=== PATIENT | male | born 1940 | race Caucasian/White ===

== ENCOUNTER → 2016-11-03 20:04 | Outpatient (CLI) | payer MEDICARE, OTHER ==
[2016-04-01 10:24] VITALS: BMI 35.8
[~2016-11-03 20:04] MED LIST: ACETAMINOPHEN325 MG PO; ACETAMINOPHEN500 M1 PO; AMBIEN10 MG PO; AMBIEN5 MG PO; ARICEPT10 MG PO; ARICEPT5 MG PO; ASCORBIC ACID500 MG PO; ASPIRIN325 MG PO; ASPIRIN81 MG PO; ATIVAN0.5 MG PO; ATIVAN1 MG PO; ATIVAN2 MG/ML IM; AUGMENTIN 875-11 TAB PO; BAYER CHEWABLE81 MG PO; BOUDREAUXS113 GM TP; BUDEPRION XL300 MG PO; BUMEX 1 MG TAB1 MG PO; BUMEX 1 MG/1 MG/4 ML IV; BUMEX2 MG PO; BUSPAR10 MG PO; BUSPAR5 MG PO; CELEXA40 MG PO; CLOBETASOL PROP15 GM TP; COLCRYS0.6 MG PO; CORDARONE200 MG PO; COREG 3.1253.125 MG PO; COREG12.5 MG PO; COREG6.25 MG PO; COZAAR100 MG PO; CROMOLYN SOD40 MG/ML NS; CYMBALTA30 MG PO; DEPAKOTE SPRIN125 MG PO; DUONEB 2.5-0.5 M3 ML UPD; EFFEXOR XR150 MG PO; EFFEXOR XR37.5 MG PO; EFFEXOR75 MG PO; ERYTHROCIN STE500 MG PO; FLOMAX0.4 MG PO; FLORASTOR250 MG PO; FLUTICASONE PRO16 GM NASAL; GLUCOSAMINE & C1 CAP PO; HALDOL5 MG PO; HALDOL5 MG/ML IM; HYDROCODON-ACE1 EAC7 PO; K-DUR20 MEQ PO; KENALOG IN ORABA5 GM TOPICAL; KLONOPIN0.5 MG PO; LAC-HYDRIN 5226 ML TP; LASIX40 MG PO; LEVAQUIN PREMI750 MG IV; LEVAQUIN500 MG PO; LISINOPRIL10 MG PO; LOVENOX40 MG/0.4 SQ; MAG-OX 400 MG400 MG OR; MAG-OXIDE400 MG PO; MELATONIN 3 MG1 TAB PO; MIRALAX17 GM PO; MUCINEX600 MG PO; NASONEX NASAL S17 GM NS; NEURONTIN 300300 MG PO; NORCO 10/325 TA1 TA1 PO; NORCO 7.5/325 T1 TA1 PO; OMEPRAZOLE20 M1 PO; POTASSIUM20 MEQ/11 NG; PREDNISONE10 MG PO; PREDNISONE20 MG PO; PROTONIX40 MG PO; REQUIP XL2 MG PO; REQUIP XL6 MG PO; REQUIP0.25 MG PO; REQUIP3 MG PO; SALINE FLUSH10 ML IJ; SEPTRA DS TABLE1 TAB PO; SILVASORB HYDRO45 GM TP; SYNTHROID50 MCG PO; TRAZODONE HCL150 MG PO; TRAZODONE HCL50 MG PO; TYLENOL W/CODEI1 TAB PO; ULORIC40 MG PO; WELLBUTRIN XL300 M1 PO; ZAROXOLYN2.5 MG PO; ZAROXOLYN5 MG PO; ZOLOFT100 MG PO; ZYLOPRIM300 MG PO; ZYPREXA5 MG PO; [UNRECOGNIZED DRUG - OTHER] NS
== END | disposition home or self-care (01) ==
LOC: D.SLEEP 20:00
DX: G47.33 Obstructive sleep apnea (adult) (pediatric) (principal)

== ENCOUNTER 2016-11-04 13:57 | Inpatient (IN) | payer MEDICARE, OTHER ==
[~2016-11-04] VITALS: Ht 177.8 cm; Wt 103.0 kg
[~2016-11-04 13:57] MED LIST changes: -ACETAMINOPHEN325 MG PO; -ARICEPT10 MG PO; -CLOBETASOL PROP15 GM TP; -COLCRYS0.6 MG PO; -COREG 3.1253.125 MG PO; -CYMBALTA30 MG PO; -DEPAKOTE SPRIN125 MG PO; -FLUTICASONE PRO16 GM NASAL; -HYDROCODON-ACE1 EAC7 PO; -KENALOG IN ORABA5 GM TOPICAL; -LISINOPRIL10 MG PO; -MIRALAX17 GM PO; -MUCINEX600 MG PO; -NEURONTIN 300300 MG PO; -OMEPRAZOLE20 M1 PO; -REQUIP0.25 MG PO; -TRAZODONE HCL150 MG PO; -TRAZODONE HCL50 MG PO; -ZOLOFT100 MG PO; -ZYPREXA5 MG PO
[2016-11-04] MEDS ORDERED: ACETAMINOPHEN325 MG PO (14:06)
[2016-11-04] MEDS ORDERED: ARICEPT10 MG PO (14:07)
[2016-11-04] MEDS ORDERED: ZOLOFT100 MG PO (14:09)
[2016-11-04] MEDS ORDERED: CYMBALTA30 MG PO (14:10)
[2016-11-04] MEDS ORDERED: TRAZODONE HCL50 MG PO (14:11)
[2016-11-04] MEDS ORDERED: OMEPRAZOLE20 M1 PO (14:12)
[2016-11-04] MEDS ORDERED: K-DUR20 MEQ PO (14:13)
[2016-11-04] MEDS ORDERED: LISINOPRIL10 MG PO (14:17)
[2016-11-04] MEDS ORDERED: LASIX40 MG PO (14:18)
[2016-11-04] MEDS ORDERED: FLUTICASONE PRO16 GM NASAL (14:21)
[2016-11-04] MEDS ORDERED: COREG 3.1253.125 MG PO (14:25)
[2016-11-04] MEDS ORDERED: COLCRYS0.6 MG PO (14:26)
[2016-11-04] MEDS ORDERED: NEURONTIN 300300 MG PO (14:27)
[2016-11-04] MEDS ORDERED: HYDROCODON-ACE1 EAC7 PO (14:28)
[2016-11-04] MEDS ORDERED: MIRALAX17 GM PO (14:30)
[2016-11-04] MEDS ORDERED: CLOBETASOL PROP15 GM TP (14:34)
[2016-11-04] MEDS ORDERED: KENALOG IN ORABA5 GM TOPICAL (14:38)
[2016-11-04 15:12] VITALS: BP 148/75; BMI 32.4
--- NOTE | 2016-11-04 15:15 | NUR ---
Patient arrived via EMS with two EMT's, patient able to stand and ambulate with a walker. Patient has only been at [facility] for three months. Apparently he is upset about being there and he has displayed aggressive and threatening behaviors. Patient is currently calm and compliant, he is able to answer questions appropriately, he is quite flitatious with females. Patient does have a pacemaker on his left side. Has a scar to chest where he had a quad bypass, scar on left leg, scars from psoriasis. C/O chronic pain. Patient says he just does not like [facility]. Provided patient a w/c and took him to the day room.
[2016-11-04 16:06] LABS: BASOPHILS 0.7 % (0.0-2.0); EOSINOPHILS 4.3 % (0-7); HEMATOCRIT 35.7 % (42.0-54.0); HEMOGLOBIN 11.1 g/dL (13.5-17.5); IMMATURE GRANULOCYTES 0.2 % (0-5); LYMPHOCYTES 22.3 % (15-50); MCH 27.6 pg (26.0-34.0); MCHC 31.1 g/dL (31.0-37.0); MCV 88.8 fL (80.0-100.0); MEAN PLATELET VOLUME 9.9 fL (7.4-10.4); MONOCYTES 11.2 % (2-11); NEUTROPHILS 61.3 % (40-80); RBC 4.02 10x6/uL (4.20-6.10); WBC 6.1 10x3/uL (4.8-10.8)
[2016-11-04 16:12] LABS: PLATELET COUNT 235 10x3/uL (130-400)
[2016-11-04 16:21] LABS: HEMOGLOBIN A1C 5.5 % (4.8-6.0)
[2016-11-04 16:32] LABS: ALBUMIN 3.3 g/dL (3.4-5.0); ANION GAP 11.4 mmol/L (8-16); BILIRUBIN - TOTAL 0.24 mg/dL (0.2-1.3); CALCIUM 9.3 mg/dL (8.5-10.1); CARBON DIOXIDE 29.9 mmol/L (21.0-32.0); CHOL - HDL RATIO 2.9 ratio (2.3-4.9); CREATININE - SERUM 1.2 mg/dL (0.6-1.3); LDL-HDL RATIO 1.5 ratio (1.5-3.5); POTASSIUM - SERUM 4.3 mmol/L (3.5-5.1); PROTEIN - SERUM 6.1 g/dL (6.4-8.2); THYROID STIMULATING HORMONE 0.49 uIU/mL (0.36-3.74)
[2016-11-04 19:30] VITALS: BP 134/62
--- NOTE | 2016-11-05 00:19 | NUR ---
B) Recieved patient in the day room sitting in a wheelchair, alert and complaining about his care, the arrangement of the bathrooms, heritage, the doctors, the other patients, and many other subjects, if corrected or redirected he yells that he is hard of hearing, demands that all medications be explained and wants to pick and choose what medications that he wants to take, demanding and attention seeking, I) Administered perscribed medications, redirected as needed, PRN ativan 1 mg PO given at 2242, PRN Tylenol 650 mg given for head ache 7 of 10 at 0030, R) Refused some medications and took somme medications, P) Continue plan of care, continue to monitor.
[2016-11-05 04:13] LABS: RAPID PLASMA REAGIN Non Reactive (Non Reactive)
[2016-11-05 05:15] LABS: VITAMIN D 25 HYDROXY 50.3 ng/mL (30.0-100.0)
[2016-11-05 08:11] VITALS: BP 144/75
[2016-11-05 09:18] LABS: FOLATE (FOLIC ACID) - SERUM 19.8 ng/mL (>3.0)
--- NOTE | 2016-11-05 12:36 | NUR ---
(B)RECEIVED PATIENT SITTING IN A CHAIR AT THE NURSES STATION. ORIENTED X3 HOWEVER DESCRIBES THE FACILITY BEING A LARGE LOCK DOWN UNIT FOR MENTAL ADULTS. RELATES REASON FOR HOSPITALIZATION "I GUESS BECAUSE I'M A [place] AND I DON'T SPEAK THEIR LANGUAGE. I USE MORE 5 SYLLABLE WORDS AND THEY DON'T UNDERSTAND. THEY ARE SO STUPID." VERY NEGATIVE REGARDING HIS LIVING FACILITY RELATING THEIR AIR IS TOXIC AND NOT WORTH BREATHING. VERY LOUD AND DOMINANT IN CONVERSATIONS. WHEN INFORMED FOR REPORTED REASON FOR HOSPITALIZATION PATIENT RELATES "I MAY HAVE BUT THEY DESERVED IT." (I)ADMINISTER MEDS AND MONITOR COMPLIANCE. REDIRECT WHEN BEING NEGATIVE AND DISRUPTING ENVIRONMENT. (R)FMED COMPLIANT. POOR REDIRECTION. CONTINUES WITH PROJECTED BEHAVIOR AND WILL BE ARGUMENTATIVE. (P)CONTINUE POC AND MAINTAIN FALL PRECAUTIONS.
--- NOTE | 2016-11-05 14:13 | NUR ---
Patient is agitated and yelling out. He is upsetting the other patients with his rants and raves. He does not like the rules. Haldol 2 mg IM given in left deltoid.
[2016-11-05 14:19] VITALS: Ht 177.8 cm; Wt 103.0 kg
[2016-11-05 16:21] LABS: APPEARANCE CLEAR (CLEAR); BILIRUBIN NEGATIVE (NEGATIVE); COLOR YELLOW (YELLOW); GLUCOSE NEGATIVE (NEGATIVE); KETONE NEGATIVE (NEGATIVE); LEUKOCYTE ESTERASE NEGATIVE (NEGATIVE); NITRITE NEGATIVE (NEGATIVE); PROTEIN NEGATIVE (NEGATIVE); UROBILINOGEN NORMAL (NORMAL)
[2016-11-05 19:30] VITALS: BP 119/57
--- NOTE | 2016-11-05 20:52 | NUR ---
B) Patient is acting out, talking gruff and rude with staff and about staff. Lizz Gaxiola RN took him to his room and she was able to talk with him and calm him slightly, she asked him if he would like an ativan to calm him down, he had been yelling out and screaming to GOD and saying "No one cares about me" Patient said he would take an ativan by mouth. I) Ativan 1 mg po given. R) Will monitor outcome. P) Continue plan of care.
--- NOTE | 2016-11-05 23:32 | NUR ---
PATIENT STILL ANXIOUS AND REQUESTING AN INJECTION TO HELP HIM. HALDOL 2 MG IM GIVEN IN RIGHT DORSOGLUTEAL MUSCLE. WILL MONITOR OUTCOME.
[2016-11-06 09:46] VITALS: BP 124/68
--- NOTE | 2016-11-06 16:01 | NUR ---
RECEIVED THIS AM SITTING IN WHEELCHAIR.COMPLIANT WITH MEDS.C/O "I WANT THE COUCH,I WANT TO LAY DOWN.HE ALWAYS HAS THE COUCH."VERY LOUD AND DETERMINED.NURSE INFORMED HIM HE CAN HAVE COUCH AFTER LUNCH.THIS SEEMED TO CALM HIM SOME.WILL CONTINUE WITH PLAN OF CARE,MONITOR FOR CHANGES AND SAFETY.
--- NOTE | 2016-11-06 18:39 | PSY ---
PATIENT NAME:MK ROMAN MEDICAL RECORD: [id number] : 40 LOCATION:[facility] ADMISSION DATE: 11/04/16 ACCOUNT: [id number] PSYCHIATRIC EVALUATION DATE OF EVALUATION: 11/05/16 IDENTIFYING DATA: This is the third [facility] admission for this 76-year-old unmarried white male. HISTORY OF PRESENT ILLNESS: This patient was previously admitted to this unit in 2013. At that time, he received a diagnosis of major depressive disorder as well as narcissistic personality disorder. At the time of the original admission, the patient had been having severe marital difficulties. He had expressed suicidality and was subsequently admitted here. Subsequent to discharge, the patient had returned to the home environment; he and his are no longer together. The patient was admitted back to the hospital in the summer of last year following a transient ischemic attack and apparent CVA. He was transferred to a treatment facility in [place] through the [facility]. Subsequent to this, he was placed in a long term in [place] and later transferred to [facility] where he is currently a resident. The patient was sent to [facility] due to threatening behavior and verbalization directed at staff and other patients. One staff member reported the patient had made statements indicative of suicidality as well. The patient himself denies suicidal intent. There is no evidence of psychosis, no ongoing substance abuse as far as can be determined. PAST MEDICAL HISTORY: The patient has a past history of respiratory failure secondary to his CVA last year. He has a history of congestive heart failure, anemia, maxillary sinusitis, ERD and CVA is noted. MEDICATION: At the time of admission included aspirin, acetaminophen with hydrocodone, Coreg, colchicine, Aricept, Cymbalta, Lasix, Flonase, Neurontin, lisinopril, Protonix, K-Dur, Zoloft, Flomax and trazodone. FAMILY HISTORY: Noncontributory. SOCIAL HISTORY: The patient is currently a long term resident. He denies substance abuse. He is a [employer] . ALLERGIES: None listed. MENTAL STATUS: On interview, the patient is seated in a wheelchair. He is overly loud and intrusive on conversations with other patients'. Mood is alternately irritable and more euthymic. Affect is expansive and brittle at times. Content of thought is focused on persecutory themes. The patient projects blame problems on other individuals and facilities. The patient denies suicidal intent and there is no evidence of psychosis. Sensorium does show deficits. He has difficulties with short-term and immediate recall. Insight is very limited. DIAGNOSTIC IMPRESSION: AXIS I: Major depressive disorder - recurrent by history, reported history of dementia. AXIS II: Narcissistic personality disorder (cluster B). AXIS III: Congestive heart failure, status post cerebrovascular accident, history of gout, inhalant allergies, recent history of respiratory failure and gastroesophageal reflux disease. AXIS IV: Moderate. AXIS V: 36. PLAN: 1. The patient is admitted for further evaluation and medication adjustment as indicated. 2. Supportive therapy. 3. We will coordinate with referring agency regarding followup care. TRANSINT:[id number] Voice Confirmation ID: [id number] DOCUMENT ID: [id number] SURAJ PONCE III, MD at 1839 CC: [id number] DICTATION DATE: 11/05/16 1157 YOUTH PASTOR: 11/05/16 1311 ADM IN [facility] [address] [id number]
[2016-11-06 20:00] VITALS: BP 182/87
--- NOTE | 2016-11-06 21:50 | NUR ---
B) Drowsy and lethargic sleeping on couch at change of shift. Questioned if his medications were really his, argumentative about purpose of each medication. No interaction with peers. Irritable but no aggression or yelling or cursing this shift thus far. Did have a shower this evening with assist. I) Administer medications as ordered, redirect and reorient PRN. R) Oriented x 4. Does know that he shouldn't threaten others. P) Continue with plan of care.
[2016-11-07 07:41] VITALS: BP 128/94
--- NOTE | 2016-11-07 13:38 | NUR ---
pt was very combative and agitated this morning. pt was yelling and cursing at staff. pt would not redirect. pt is oriented to person, place, and time. pt denies any reason for admission to "assisted". attempted to help calm patient and educate on reason for admit but he continued to yell and refused any education. pt stated that he could not walk due to being too weak, so he was placed in a wheelchair. later he attempted to stand without assist. staff again attempted to eduate pt on fall risk and he refused. security was called due to pt's combativeness. pt was given a PRN Haldol IM due to severe anxiety and inability to calm down. got pt to sit in wheelchair but he refused to elevate his legs. skin was tight and he c/o soreness but he continued to refuse to elevate his legs or to take his medication. pt again attempted to stand and staff helped to move him into a monica chair during first transfer it was noticed that the pt had a laceration to his right calf. no contact had been done with this leg so i called dr. nolasco and reported injury. she stated due to the pt's edematous legs that it happened without contact. i called delfino berman, pt's daughter and informed her of the incident. i applied a pressure dressage to leg and cleaned the area. pt did finally calm down and allowed staff to elevate feet and apply todd hoses. pt thanked staff for their care. will continue to monitor and continue with plan of care.
[2016-11-07 19:30] VITALS: BP 148/70
--- NOTE | 2016-11-07 21:13 | NUR ---
RECEIVED IN DAYROOM. MOVING ABOUT IN WHEELCHAIR. CALM AND COOPERATIVE WITH CARE AND ASSESSMENT. DEMANDING AT TIMES. NOT YELLING OUT OR CURSING. RUDE TO PEERS. REDIRECT AND REORIENT NEEDED. PM MEDS GIVEN ORDERED. LAYING IN BED WITH EYES OPEN AT THIS TIME. CONTINUE PLAN OF CARE
--- NOTE | 2016-11-07 23:43 | NUR ---
Complaining of excruciating aching burning pain in both hands. Given [place] tab po PRN as ordered. Will monitor for effectiveness.
[2016-11-08 07:38] VITALS: BP 128/72
--- NOTE | 2016-11-08 15:38 | NUR ---
B.) Alert and oriented to name and states place as " this is a senior care without bars." Patient is disgruntal and argumentive with staff, " just stupid people to have us wake up so early and then eat cold breakfast, just stupid." I.) Administer medications and monitor compliance, redirect for any disruptive beahvior and disgruntal remarks. Monitor safety and encourage group participation. R.) Compliant with medications, does not rediect easily when disruptive, " just give me a 45 and then I'll be out of everybody way" then starts to cry and demand he be lifted up from chair to W/C. Contracted for safety. P.) Continue with plan of care and redirecting for inappropriate behavior as need.
--- NOTE | 2016-11-08 15:48 | NUR ---
WOUND CARE CONSULT: PT HAS A SKIN TEAR ON RIGHT CALF. IT IS CLEAN AND DRY, STERISTRIPS IN PLACE, NON-ADHERENT GAUZE, 4X4S AND KERLIX TO SECURE. RECOMMEND KEEPING DRESSING CLEAN/DRY. LEAVE STERI STRIPS IN PLACE UNTIL THEY LOOSEN. THANKS
[2016-11-08 19:58] VITALS: BP 140/59
--- NOTE | 2016-11-08 20:09 | NUR ---
RECEIVED IN DAYROOM. SETTING IN RECLINING CHAIR. CALM AND COOPERATIVE WITH CARE AND ASSESSMENT. ENCOURAGE TO KEEP FEET ELEVATED BUT CONTINUES TO PUT HIS FEET DOWN. NO CURSING OR YELLING OUT THIS EVENING. CONTINUES TO SET QUIETLY WATCHING TV. CONTINUE PLAN OF CARE
--- NOTE | 2016-11-08 22:11 | NUR ---
patient given [place] for generlized pain 10 of 10,
--- NOTE | 2016-11-08 23:26 | NUR ---
PRN ATIVAN 1 MG GIVEN FOR ANXIETY AT 2259.
--- NOTE | 2016-11-09 10:01 | NUR ---
Nutrition Follow Up: Chart reviewed. Pt is eating 81% meal avg on a regular [place]RIA diet. Noted pt does not want any beef. Wt gain of 2# since admit. +BM 11/07/16. Meds noted including Lasix. Pt with good po intake at this time. Rec continue current diet. RD following.
[2016-11-09 10:07] VITALS: BP 171/76
--- NOTE | 2016-11-09 10:39 | PN ---
PATIENT:MK ROMAN MEDICAL RECORD: [id number] LOCATION:[facility] P[facility]ro112 ADMISSION DATE: 11/04/16 PROGRESS NOTE DATE OF SERVICE: 11/08/2016 SUBJECTIVE: The patient states "This place is a dump." OBJECTIVE: Staff report the patient has been extremely difficult to manage due to his demeaning sarcastic comments, poor cooperation, attention seeking behavior and disruptive outbursts. The patient has had several episodes of yelling when he simply was displeased with something that staff did. He has required almost constant redirection. On exam, mood is irritable. Affect is very brittle. Speech is somewhat pressured. Content of thought is predominated by narcissistic themes and expressions of persecution. Sensorium is unchanged. ASSESSMENT: No change in diagnosis. PLAN: 1. Serum valproic acid level was 29.7. We will change Depakote to 500 mg b.i.d. 2. Add Zyprexa 5 mg b.i.d. 3. Increase trazodone 150 mg h.s. TRANSINT:[id number] Voice Confirmation ID: [id number] DOCUMENT ID: [id number] SURAJ PONCE III, MD at 1039 CC: [id number] DICTATION DATE: 11/08/16 1159 CONCRETE PAVEMENT INSTALLER: 11/08/16 1421 ADM IN [id number] [place] [address]
--- NOTE | 2016-11-09 11:04 | NUR ---
PATIENT IS SITTING IN A CHAIR IN THE DAYROOM. DISRUPTIVE AND SPEAKING LOUDLY RELATING "WHY CAN'T I HAVE WARM CLOTHES LIKE EVERYBODY ELSE? I WANT TO TALK TO THE BOSS. I WANT TO TALK TO THE BOSS RIGHT NOW. PATIENT HAS BEEN NAPPING ON AND OFF THIS AM. IF NOT NAPPING PATIENT ARGUES AND DISRUPTS THE UNIT. ATIVAN PO ADMINISTERED PER ORDERS.
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
[2016-11-09 19:39] VITALS: BP 140/58
--- NOTE | 2016-11-09 20:51 | NUR ---
B) Patient continues to be demanding and yells out, he is sitting in a monica chair and yelling at staff to turn the channel to what he wants then he says "I want to go to bed, take me to bed" Patient is attention seeking and self absorbed. He knows his name and where he is located. I) Provide prescribed meds. R) Patient is compliant with meds. Did provide ativan 1 mg po now for his anxiety and yelling out. P) Continue plan of care.
--- NOTE | 2016-11-10 01:30 | NUR ---
PATIENT YELLING OUT ATTEMPING TO GET OUT OF BED. REDIRECT BUT CONTINUES TO ATTEMPT TO GET OUT OF BED WITHOUT ASSIST. [facility] AND MOVED TO [address] AT [facility]UR[facility]ES STATION FOR ONE ON ONE CARE.
--- NOTE | 2016-11-10 03:21 | NUR ---
PATIENT THROUGH WATER ON HIMSELF AND YELLED OUT SHE THROUGH WATER ON ME. REFERRING TO THE [facility] THAT HAD JUST GIVEN HIM A CUP OF WATER WHICH AT THIS TIME M[facility] WAS DOWN [address] DOING LAUNDRY. REDIRECTED BUT CONTINUES TO YELL. HALDOL 2 MG IM GIVEN.
[2016-11-10 07:40] VITALS: BP 167/65
--- NOTE | 2016-11-10 10:37 | PN ---
PATIENT:MK ROMAN MEDICAL RECORD: [id number] LOCATION:[facility]E [facility] ADMISSION DATE: 11/04/16 PROGRESS NOTE DATE OF SERVICE: 11/09/2016 SUBJECTIVE: No new complaint. OBJECTIVE: The patient continues to be very petulant and childlike in his interaction with staff. He is very attention seeking and will disrupt the activities on the unit at regular intervals. However, he is taking his medication. On exam, mood is irritable. Affect is very shallow, brittle and childlike. Speech is terse. Content of thought is negative for overt psychosis. Sensorium is unchanged. ASSESSMENT: No change in diagnosis. PLAN: 1. Maintain current medication. 2. Continue supportive therapy. TRANSINT:[id number] Voice Confirmation ID: [id number] DOCUMENT ID: [id number] SURAJ PONCE III, MD at 1037 CC: [id number] DICTATION DATE: 11/09/16 1215 FELT FINISHING SUPERVISOR: 11/09/16 1251 ADM IN [id number] [place] [address]
--- NOTE | 2016-11-10 14:21 | NUR ---
RECEIVED THIS AM IN HALLWAY IN [facility].VERY HARD OF HEARING.ORIENTED.COMPLIANT WITH MEDS.IS VERY LOUD AND DEMANDING WHEN HE DOESN'T GET HIS WAY SUCH CHANGING TV CHANNELS.REQUIRED 2 TO TRANSFER FROMRECLINER TO WHEELCHAIR,STATED HE CAN'T WALK NOW.PT WAS ORDERED AND HE AMB WITH WALKER WITH PT.WILL CONTINUE WITH PLAN OF CARE,MONITOR FOR CHANGES AND SAFETY.
--- NOTE | 2016-11-10 20:49 | NUR ---
RECEIVED IN DAYROOM. SETTING IN WHEELCHAIR TO HIMSELF. NOT SOCIALIZING BUT DOES MAKE OCCASIONAL RUDE STATEMENTS TO STAFF AND OTHERS. DEMANDING AT TIMES. NOT MAKING ANY THREATS AT THIS TIME. REDIRECT NEEDED. PM MEDS GIVEN ORDERED. RESTING IN BED AT THIS TIME. CONTINUE PLAN OF CARE
[2016-11-11 08:07] VITALS: BP 148/69
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
--- NOTE | 2016-11-11 15:09 | NUR ---
PATIENT ORIENTED TO PERSON, PLACE, TIME AND SITUATION. STATING HE IS HERE BECAUSE "I MARCH TO A DIFFERENT DRUMMER". PATIENT COOPERATIVE WITH MEDICATION, PATIENT WAS ASSISTED WITH PERSONAL HYGIENE, CALM AND COOPERATIVE. CONTINUE PLAN OF CARE.
[2016-11-11 19:30] VITALS: BP 130/108
--- NOTE | 2016-11-11 20:40 | NUR ---
In dayroom lying in recliner with blanket pulled up over his head. Making rude sarcastic comments to others interrupting conversations around him.
--- NOTE | 2016-11-11 20:47 | NUR ---
Given Ativan 1mg po PRN for anxiety.
--- NOTE | 2016-11-11 21:35 | NUR ---
Behavior somewhat calmer, in bed trying to settle to sleep. Ativan effective.
--- NOTE | 2016-11-12 00:55 | NUR ---
Given [place] 5-325mg tab po PRN for complaints of right knee pain.
--- NOTE | 2016-11-12 01:29 | NUR ---
B) Patient continues to question his medications, be impatient and demanding with frivolous requests such as having his soda refilled when he sees staff tending to a peer's needs. No signs of chest pain, facial expression calm, no body tenseness, no diaphoresis, VSS. Claims that the [place] tab given from previous shift did not help his headache, his pain is still 10/10. However when he returned to his room was found to be napping, respirations easy and regular. Frequently puts call german on, has been assisted up to BR x 2 with staff assistance. I) Administer medications as ordered, redirect and reorient PRN. R) Complaint with medications, labile mood. P) Continue to monitor per plan of care.
--- NOTE | 2016-11-12 01:40 | NUR ---
Right knee pain deemed to be relieved, sleeping at thie time.
[2016-11-12] MEDS ORDERED: DEPAKOTE SPRIN125 MG PO (03:43)
[2016-11-12] MEDS ORDERED: TRAZODONE HCL150 MG PO (03:44)
[2016-11-12] MEDS ORDERED: REQUIP0.25 MG PO (03:44)
[2016-11-12] MEDS ORDERED: ZYPREXA5 MG PO (03:44)
[2016-11-12] MEDS ORDERED: PROTONIX40 MG PO (03:45)
[2016-11-12] MEDS ORDERED: MUCINEX600 MG PO (03:45)
--- NOTE | 2016-11-12 03:47 | PN ---
PATIENT:MK ROMAN MEDICAL RECORD: [id number] LOCATION:J[facility]E [facility] ADMISSION DATE: 11/04/16 PROGRESS NOTE DATE OF SERVICE: 11/11/2016 SUBJECTIVE: No new complaint is offered. OBJECTIVE: The patient is continuing to show a subtherapeutic level of valproic acid results from yesterday morning or only 40.5. The patient has continued to show obstreperous behavior, but has not been directly combative or assaultive in several days. On exam, mood irritable. Affect is brittle and childlike. Speech is somewhat tangential. Content of thought is essentially unchanged. Sensorium is unchanged. ASSESSMENT: No change in diagnosis. PLAN: 1. Advance Depakote Sprinkle 750 mg b.i.d. 2. Repeat valproic acid blood level in the morning. 3. Anticipate discharge tomorrow. TRANSINT:[id number] Voice Confirmation ID: [id number] DOCUMENT ID: [id number] SURAJ PONCE III, MD at 0347 CC: [id number] DICTATION DATE: 11/11/16 1205 DIESEL RETROFIT INSTALLER: 11/11/16 1439 ADM IN [id number] [place] [address]
--- NOTE | 2016-11-12 05:35 | NUR ---
Given Tylenol 650mg po PRN for right calf pain 8/10 severity. Will monitor for effectiveness.
[2016-11-12 06:38] VITALS: BP 117/55
[2016-11-12 08:12] VITALS: BP 126/49
--- NOTE | 2016-11-12 08:56 | NUR ---
PATIENT PRESENTS WITH CONTINUED BILIGERENT BEHAVIORS, HAS NOT BEEN COMBATIVE, BUT DOES YELL OUT AND DEMANDS. PATIENT TO D/C TODAY. [facility] GAVE VERBAL REPORT. HARD COPY PROVIDED TO SOFTWARE APPLICATIONS SPECIALIST. PATIENT ASSISTED TO VAN BY STAFF. PATIENT WAS DISCHARGED FROM THE BUILDING.
--- NOTE | 2016-11-13 12:54 | PN ---
PATIENT:MK ROMAN MEDICAL RECORD: [id number] LOCATION:[facility]ro112 ADMISSION DATE: 11/04/16 PROGRESS NOTE DATE OF SERVICE: 11/12/2016 SUBJECTIVE: The patient's case was discussed with staff. He has no new complaint. OBJECTIVE: The patient is in good behavioral control with limited insight about his condition. He tolerates his medicines well. ASSESSMENT: No change in diagnoses. PLAN: Current medicines and therapies have been reviewed and will be maintained. Long-term prognosis is guarded. Followup will be with the patient's primary care physician. TRANSINT:[id number] Voice Confirmation ID: [id number] DOCUMENT ID: [id number] EASTON STEINER MD at 1254 CC: [id number] DICTATION DATE: 11/12/16 1223 CHEMIST STEROIDS: 11/12/16 1727 DIS IN 11/12/[id number] [place] [address]
--- NOTE | 2016-11-16 01:03 | DS ---
PATIENT:MK ROMAN :40 MEDICAL RECORD: [id number] DISCHARGE SUMMARY ADMISSION DATE: 11/04/16 DISCHARGE DATE: 11/12/16 DATE OF ADMISSION: 11/04/2016. DATE OF DISCHARGED: 11/12/2016. HISTORY OF PRESENT ILLNESS: This was the third [facility] admission for this 76-year-old unmarried white male. The patient had been admitted because of agitation and threatening behavior with staff and now the patient had his penitentiary. The patient had made some questionable suicidal statements, but this was denied later. 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 Because of worsening behavior, the patient was admitted. For further details, please see previously dictated history. COURSE IN HOSPITAL: The patient was seen in consultation by Dr. Munson and Dr. Munson noted the presence of COPD, arthritis, hypertension, coronary artery disease, benign prostatic hypertrophy, anemia and GERD as well as gait impairment. During the course of hospitalization, the patient was given neuropsychological testing, which did indicate a significant dementia. From a medication standpoint, the patient was placed on Zyprexa, dosage was stabilized at 5 mg h.s. He is also placed on Depakote Sprinkle 750 mg b.i.d. for control of his agitation. Other medications were continued included Mucinex, ____, Xopenex, trazodone 150 mg h.s., Neurontin 300 mg daily, Requip, K-Dur, lisinopril, Lasix, Flonase, aspirin, Protonix, Flomax, Coreg, and colchicine. The patient presented a management challenge due tot his extremely insulting sarcastic and uncooperative behavior. This all is related to his personality disorder, which is extreme. However, in terms of combativeness or suicidality, the patient improved. Considerably by the time of discharge, he was felt to be stable enough to return to the penitentiary environment. FINAL DIAGNOSES: AXIS I: Alzheimer's dementia, history of depression. AXIS II: Narcissistic personality disorder. AXIS III: Congestive heart failure, status post cerebrovascular accident, gout, inhalant allergies, chronic obstructive pulmonary disease, gastroesophageal reflux disease. AXIS IV: Moderate. AXIS V: 40. PLAN: 1. The patient is discharged on current medications. 2. Diet and activities as tolerated. 3. Follow up with primary care physician. TRANSINT:[id number] Voice Confirmation ID: [id number] DOCUMENT ID: [id number] DISCHARGE SUMMARY REPORT [id number] MK ROMAN III, SURAJ Nam MD at 0103 CC: [id number] DICTATION DATE: 11/15/16 1251 CAMERA REPAIR TECHNICIAN: 11/15/16 1544 DIS IN 11/12/16 [place] [id number] [place] [id number]
== END 2016-11-12 09:05 | disposition other institution (70) | DRG 884 ==
LOC: D.PSYCH 13:57
PROVIDERS: ADMIT Psychiatry & Neurology Psychiatry
DX: F03.91 Unspecified dementia, unspecified severity, with behavioral disturbance (principal); I50.42 Chronic combined systolic (congestive) and diastolic (congestive) heart failure; F41.8 Other specified anxiety disorders; L40.50 Arthropathic psoriasis, unspecified; I25.10 Atherosclerotic heart disease of native coronary artery without angina pectoris; K21.9 Gastro-esophageal reflux disease without esophagitis; G47.33 Obstructive sleep apnea (adult) (pediatric); K59.00 Constipation, unspecified; G47.00 Insomnia, unspecified; I11.0 Hypertensive heart disease with heart failure; E11.9 Type 2 diabetes mellitus without complications; E03.9 Hypothyroidism, unspecified; E78.5 Hyperlipidemia, unspecified; F60.81 Narcissistic personality disorder; N40.0 Benign prostatic hyperplasia without lower urinary tract symptoms; G25.81 Restless legs syndrome; D64.9 Anemia, unspecified; Z95.0 Presence of cardiac pacemaker; Z95.1 Presence of aortocoronary bypass graft; Z86.73 Personal history of transient ischemic attack (TIA), and cerebral infarction without residual deficits; Z87.891 Personal history of nicotine dependence

== ENCOUNTER → 2016-12-22 19:37 | Outpatient (CLI) | payer MEDICARE, OTHER ==
[2016-11-05 14:19] VITALS: BMI 32.2
[~2016-12-22 19:37] MED LIST changes: +ACETAMINOPHEN325 MG PO; +ARICEPT10 MG PO; +CLOBETASOL PROP15 GM TP; +COLCRYS0.6 MG PO; +COREG 3.1253.125 MG PO; +CYMBALTA30 MG PO; +DEPAKOTE SPRIN125 MG PO; +FLUTICASONE PRO16 GM NASAL; +HYDROCODON-ACE1 EAC7 PO; +KENALOG IN ORABA5 GM TOPICAL; +LISINOPRIL10 MG PO; +MIRALAX17 GM PO; +MUCINEX600 MG PO; +NEURONTIN 300300 MG PO; +OMEPRAZOLE20 M1 PO; +REQUIP0.25 MG PO; +TRAZODONE HCL150 MG PO; +TRAZODONE HCL50 MG PO; +ZOLOFT100 MG PO; +ZYPREXA5 MG PO
== END | disposition home or self-care (01) ==
LOC: D.SLEEP 19:37
DX: G47.33 Obstructive sleep apnea (adult) (pediatric) (principal)

== ENCOUNTER 2017-01-24 08:30 | Inpatient (IN) | payer MEDICARE, OTHER ==
[2017-01-24] VITALS (9 sets, daily range): BP systolic 101–126; BP diastolic 60–87
[~2017-01-24] VITALS: Ht 177.8 cm; Wt 93.9 kg
[2017-01-24 09:06] LABS: BASOPHILS 0.6 % (0.0-2.0); EOSINOPHILS 2.6 % (0-7); HEMATOCRIT 47.4 % (42.0-54.0); HEMOGLOBIN 15.4 g/dL (13.5-17.5); IMMATURE GRANULOCYTES 0.4 % (0-5); LYMPHOCYTES 25.3 % (15-50); MCH 28.9 pg (26.0-34.0); MCHC 32.5 g/dL (31.0-37.0); MCV 88.9 fL (80.0-100.0); MEAN PLATELET VOLUME 10.4 fL (7.4-10.4); MONOCYTES 7.3 % (2-11); NEUTROPHILS 63.8 % (40-80); PLATELET COUNT 188 10x3/uL (130-400); RBC 5.33 10x6/uL (4.20-6.10); RDW 16.3 % (11.5-14.5); WBC 7.3 10x3/uL (4.8-10.8)
[2017-01-24 09:17] LABS: APTT 34.8 SECONDS (22.8-39.4); INR 1.19 (0.85-1.17)
[2017-01-24 09:18] LABS: ALBUMIN 3.3 g/dL (3.4-5.0); ANION GAP 12.2 mmol/L (8-16); BILIRUBIN - TOTAL 0.4 mg/dL (0.2-1.3); CALCIUM 10.5 mg/dL (8.5-10.1); CARBON DIOXIDE 28.3 mmol/L (21.0-32.0); CREATININE - SERUM 1.4 mg/dL (0.6-1.3); POTASSIUM - SERUM 4.5 mmol/L (3.5-5.1); PROTEIN - SERUM 7.2 g/dL (6.4-8.2)
[2017-01-24 10:10] LABS: UDS - AMPHET NEGATIVE QUAL (NEGATIVE); UDS - BARB NEGATIVE QUAL (NEGATIVE); UDS - BENZO NEGATIVE QUAL (NEGATIVE); UDS - COCAINE NEGATIVE QUAL (NEGATIVE); UDS - METH NEGATIVE QUAL (NEGATIVE); UDS - OPIATE POSITIVE QUAL (NEGATIVE); UDS - PCP NEGATIVE QUAL (NEGATIVE); UDS - THC NEGATIVE QUAL (NEGATIVE)
[2017-01-24 10:40] LABS: APPEARANCE CLEAR (CLEAR); BILIRUBIN NEGATIVE (NEGATIVE); COLOR DK YELLOW (YELLOW); GLUCOSE NEGATIVE (NEGATIVE); KETONE NEGATIVE (NEGATIVE); LEUKOCYTE ESTERASE TRACE (NEGATIVE); NITRITE NEGATIVE (NEGATIVE); PROTEIN NEGATIVE (NEGATIVE); SPECIFIC GRAVITY 1.005 (1.005-1.020); UROBILINOGEN NORMAL (NORMAL)
[2017-01-24 10:41] LABS: BACTERIA FEW /hpf (NONE SEEN); EPITHELIAL CELLS RARE /hpf (0-5); MUCUS <1+ /lpf (NONE SEEN); RED CELLS - URINE RARE /hpf (0-5); WHITE CELLS - URINE >50 /hpf (0-5)
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
--- NOTE | 2017-01-24 17:40 | NUR ---
Rehab Prescreen order received. The patient is a new admit. Will see how the patient does with PT. Will follow the patient at this time. Thank you for this referral! Christiana Tirado RN Clinical Liaison, [facility] Rehab/Susie
[2017-01-24 17:55] LABS: APTT 30.4 SECONDS (22.8-39.4); INR 1.21 (0.85-1.17); PROTIME 15.2 SECONDS (11.6-15.0)
--- NOTE | 2017-01-24 19:30 | NUR ---
REPORT RECIEVED, SHIFT ASSESSMENT COMPLETE, PT IS CONFUSED TO TIME AND SITUATION, ATTEMPTED TO REORIENT, PT YELLING OUT AT THIS TIME, ON RA WITH 97% O2 SAT. LUNGS CLEAR IN ALL LOBES, S1S2, CM-PACEMAKER, SKIN TEARS AND ABRASIONS NOTED ALL OVER BODY, ABDOMEN IS SOFT AND ROUND WITH ACTIVE BS, PATENT F/C WITH YELLOW UOP, NO EDEMA NOTED, ALL PPP, VSS, ISAEL CON'T TO MONITOR
--- NOTE | 2017-01-24 20:00 | NUR ---
PT C/O OF 10 PAIN, ORDERED PAIN MED GIVEN
--- NOTE | 2017-01-24 21:30 | NUR ---
NO VISITORS AT THIS TIME, PT RESTING COMFORTABLY, VSS, WILL CON'T TO MONITOR
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
--- NOTE | 2017-01-24 23:00 | NUR ---
REASSESSMENT COMPLETE, PT STILL CONFUSED, C/O OF PAIN, ORDERED PAIN MED GIVEN, NO OTHER CHANGES NOTED AT THIS TIME, WILL CON'T TO MONITOR
[2017-01-25] VITALS (25 sets, daily range): BP systolic 89–135; BP diastolic 51–87; Ht 177.8 cm; Wt 93.9 kg
--- NOTE | 2017-01-25 01:09 | NUR ---
PT AWAKE AT THIS TIME, YELLING OUT, ATTEMPTED TO REORIENT, WILL CON'T TO MONITOR
--- NOTE | 2017-01-25 05:16 | NUR ---
PT RESTING AT THIS TIME, WILL CON'T TO MONITOR
[2017-01-25 05:40] LABS: BASOPHILS 0.4 % (0.0-2.0); EOSINOPHILS 0.7 % (0-7); IMMATURE GRANULOCYTES 0.3 % (0-5); LYMPHOCYTES 27.5 % (15-50); MCH 28.7 pg (26.0-34.0); MCHC 32.3 g/dL (31.0-37.0); MCV 88.8 fL (80.0-100.0); MEAN PLATELET VOLUME 10.6 fL (7.4-10.4); MONOCYTES 12.8 % (2-11); NEUTROPHILS 58.3 % (40-80); PLATELET COUNT 174 10x3/uL (130-400); RDW 16.4 % (11.5-14.5); WBC 7.4 10x3/uL (4.8-10.8)
[2017-01-25 05:53] LABS: HEMATOCRIT 35.6 % (42.0-54.0); HEMOGLOBIN 11.5 g/dL (13.5-17.5); RBC 4.01 10x6/uL (4.20-6.10)
[2017-01-25 06:08] LABS: CALC OSMOLALITY 287 mosm/kg (275-300); CALCIUM 9.3 mg/dL (8.5-10.1); CARBON DIOXIDE 22.1 mmol/L (21.0-32.0); CHLORIDE - SERUM 110 mmol/L (98-107); CREATINE KINASE 281 UL (21-232); CREATININE - SERUM 1.2 mg/dL (0.6-1.3); GLUCOSE 95 mg/dL (74-106); MAGNESIUM - SERUM 1.7 mg/dL (1.8-2.4); PHOSPHOROUS 3.6 mg/dL (2.5-4.9); POTASSIUM - SERUM 4.8 mmol/L (3.5-5.1); SODIUM 142 mmol/L (136-145); UREA NITROGEN 27 mg/dL (7-18); eGFR NON AFRICAN AMERICAN 63 mL/min (90-120)
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
--- NOTE | 2017-01-25 11:09 | NUR ---
0800- bue wrist restraints taken off after instructing pt to use call light system. pt verb understanding. bed alarm on.
--- NOTE | 2017-01-25 11:34 | NUR ---
PATIENT IS UNABLE TO ANSWER QUESTIONS AT THIS TIME. I HAVE NOT SEEN ANY FAMILY HERE TO INTERVIEW. CM TO FOLLOW.
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
--- NOTE | 2017-01-25 20:45 | NUR ---
PT CALLING FOR HELP WHEN ASKED WHAT HE NEEDED, STATES " I DON'T KNOW WHAT IS GOING ON", REORIENTED TO TIME, PLACE AND SITUATION, VSS, WILL CONT TO MONITOR FOR CHANGES.
--- NOTE | 2017-01-25 21:15 | NUR ---
EVENING MEDS GIVEN WITH SIPS OF WATER, PT HAD NO DIFFICULTY TAKING PO MEDS, NO VISITORS IN AT THIS TIME.
--- NOTE | 2017-01-25 22:00 | NUR ---
RIGHT AND LEFT ARM DRSGS REMOVED, RIGHT HAND CLEANED AND BACTROBAN, ADAPTIC AND 4X4'S APPLIED SECURED WITH KERLIX, RIGHT FOREARM AND ELBOW REDRESSED AFTER BACTROBAN APPLIED, MULTIPLE LACERATIONS NOTED TO HAND , FOREARM AND ELBOW, LEFT WRIST AREA WITH OPEN WOUNDS NOTED, BACTROBAN APPLIED AND COVERED WITH ADAPTIC, 4X4'S AND KERLIX, LEFT ELBOW WITH ABRASIONS, BLOODY DRAINAGE NOTED, BACTROBAN APPLIED AND COVERED WITH 4X4'S AND KERLIX, RIGHT SÁNCHEZ WITH ABRASION WITH SCABS NOTED, BACTROBAN APPLIED AND BORDERED GAUZE USED TO COVER, RIGHT KNEE WITH ABRASION OPEN TO AIR, BACTROBAN APPLIED, LEFT KNEE APPEARS SWOLLEN AND BRUISED, PT TOLERATED WELL, RESTING WITH EYES CLOSED, RESP EVEN AND UNLAOBRED, WILL MONITOR FOR CHANGES.
--- NOTE | 2017-01-25 22:55 | NUR ---
REPORT CALLED TO ELISSA DAILEY RN.
--- NOTE | 2017-01-25 23:22 | NUR ---
PT TRANSFERRED TO MED SURG ROOM 2222 PT MOVED TO MED SURG BED, TOLERATED WELL.
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
[2017-01-26] VITALS: BP 104/65
--- NOTE | 2017-01-26 02:33 | NUR ---
EYES CLOSED RESPIRATIONS WITH EASE AND UNLABORED. ALSO HAS FX PELVIS.
[2017-01-26 04:00] VITALS: BP 112/64
[2017-01-26 06:33] LABS: BASOPHILS 0.4 % (0.0-2.0); EOSINOPHILS 2.9 % (0-7); HEMATOCRIT 31.7 % (42.0-54.0); HEMOGLOBIN 10.2 g/dL (13.5-17.5); IMMATURE GRANULOCYTES 0.3 % (0-5); LYMPHOCYTES 29.9 % (15-50); MCHC 32.2 g/dL (31.0-37.0); MCV 90.1 fL (80.0-100.0); MEAN PLATELET VOLUME 10.4 fL (7.4-10.4); MONOCYTES 10.4 % (2-11); NEUTROPHILS 56.1 % (40-80); PLATELET COUNT 148 10x3/uL (130-400); RBC 3.52 10x6/uL (4.20-6.10); RDW 16.5 % (11.5-14.5); WBC 7.1 10x3/uL (4.8-10.8)
[2017-01-26 06:46] LABS: ANION GAP 12.6 mmol/L (8-16); CALCIUM 8.9 mg/dL (8.5-10.1); CARBON DIOXIDE 26.2 mmol/L (21.0-32.0); CREATININE - SERUM 1.2 mg/dL (0.6-1.3); MAGNESIUM - SERUM 1.6 mg/dL (1.8-2.4)
[2017-01-26 06:49] LABS: POTASSIUM - SERUM 3.8 mmol/L (3.5-5.1)
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
[2017-01-26 08:24] VITALS: BP 108/69
--- NOTE | 2017-01-26 10:26 | NUR ---
Rehab Prescreening Consult recieved and the chart has been reviewed. He has an order to go to [facility] today. Helen Singh RN Clinical Liaison, Rehab
[2017-01-26 11:59] VITALS: BP 117/59
--- NOTE | 2017-01-26 13:22 | NUR ---
OT NOTE: PERFORMED BED MOB WITH MOD/MAX ASSIST FOR SUPINE TO SIT; STATIC SITTING WITH SPV; REQUIRED MOD ASSIST TO JEFRY GOWN AND MAX ASSIST TO JEFRY SOCKS DUE TO PAIN WITH ALL MOVEMENT. PT WAS AGREEABLE TO ATTEMPT TRANSFER TO CHAIR; MOD ASSIST WITH SIT TO STAND; MIN ASSIST FOR ACTUAL TRANSFER WITH WOUND/OSTOMY NURSE; ABLE TO HOLD CUP AND DRINK WITH SET UP; MIN/SET UP FOR FEEDING
--- NOTE | 2017-01-26 15:30 | NUR ---
DISCHARGED TO [facility], DISCHARGE PAPERS AND INSTRUCTIONS GIVEN, REPORT CALLED, DISCHARGED PER WC WITH BELONGINGS
[2017-01-26 16:12] VITALS: BP 116/70
== END 2017-01-26 17:06 | disposition short-term general hospital (02) | DRG 963 ==
LOC: D.ER 08:30 → D.CVICU 13:30 → D.MS 13:30 → D.CVICU 14:38 → D.MS 01-25 23:45
PROVIDERS: Emergency Medicine; Internal Medicine Pulmonary Disease; ADMIT Surgery
PROC: 0HQ1XZZ Repair Face Skin, External Approach (ICD-10-PCS; principal; 2017-01-24)
DX: S27.0XXA Traumatic pneumothorax, initial encounter (principal); J96.90 Respiratory failure, unspecified, unspecified whether with hypoxia or hypercapnia; S32.592A Other specified fracture of left pubis, initial encounter for closed fracture; S22.32XA Fracture of one rib, left side, initial encounter for closed fracture; S27.321A Contusion of lung, unilateral, initial encounter; I13.0 Hypertensive heart and chronic kidney disease with heart failure and stage 1 through stage 4 chronic kidney disease, or unspecified chronic kidney disease; I50.22 Chronic systolic (congestive) heart failure; J44.1 Chronic obstructive pulmonary disease with (acute) exacerbation; S01.81XA Laceration without foreign body of other part of head, initial encounter; V47.0XXA Car driver injured in collision with fixed or stationary object in nontraffic accident, initial encounter; S20.212A Contusion of left front wall of thorax, initial encounter; N18.9 Chronic kidney disease, unspecified; E03.9 Hypothyroidism, unspecified; F60.81 Narcissistic personality disorder; J32.0 Chronic maxillary sinusitis; F32.9 Major depressive disorder, single episode, unspecified; I25.5 Ischemic cardiomyopathy; L40.50 Arthropathic psoriasis, unspecified; K21.9 Gastro-esophageal reflux disease without esophagitis; E78.5 Hyperlipidemia, unspecified; D64.9 Anemia, unspecified; G30.9 Alzheimer's disease, unspecified; F02.80 Dementia in other diseases classified elsewhere, unspecified severity, without behavioral disturbance, psychotic disturbance, mood disturbance, and anxiety; E11.9 Type 2 diabetes mellitus without complications; G47.33 Obstructive sleep apnea (adult) (pediatric); E83.52 Hypercalcemia; Z95.0 Presence of cardiac pacemaker; Z95.1 Presence of aortocoronary bypass graft

== ENCOUNTER 2017-01-26 16:30 | Inpatient (IN) | payer MEDICARE, OTHER ==
[2017-01-27 06:48] LABS: CHOL - HDL RATIO 3.8 ratio (2.3-4.9); LDL-HDL RATIO 2.2 ratio (1.5-3.5)
[2017-01-27 07:22] LABS: HEMOGLOBIN A1C 5.8 % (4.8-6.0)
[2017-01-27 18:48] LABS: APPEARANCE CLEAR (CLEAR); BACTERIA FEW /hpf (NONE SEEN); BILIRUBIN NEGATIVE (NEGATIVE); COLOR YELLOW (YELLOW); EPITHELIAL CELLS 0-5 /hpf (0-5); GLUCOSE NEGATIVE (NEGATIVE); KETONE NEGATIVE (NEGATIVE); LEUKOCYTE ESTERASE 1+ (NEGATIVE); MUCUS <1+ /lpf (NONE SEEN); NITRITE NEGATIVE (NEGATIVE); PROTEIN NEGATIVE (NEGATIVE); RED CELLS - URINE 25-50 /hpf (0-5); UROBILINOGEN NORMAL (NORMAL)
[2017-01-30 15:12] LABS: APPEARANCE CLEAR (CLEAR); BILIRUBIN NEGATIVE (NEGATIVE); COLOR YELLOW (YELLOW); GLUCOSE NEGATIVE (NEGATIVE); KETONE NEGATIVE (NEGATIVE); LEUKOCYTE ESTERASE TRACE (NEGATIVE); NITRITE NEGATIVE (NEGATIVE); PROTEIN NEGATIVE (NEGATIVE); SPECIFIC GRAVITY 1.015 (1.005-1.020); UROBILINOGEN NORMAL (NORMAL)
[2017-01-30 15:16] LABS: BACTERIA NONE SEEN /hpf (NONE SEEN); EPITHELIAL CELLS 0-5 /hpf (0-5); WHITE CELLS - URINE 0-5 /hpf (0-5)
[2017-02-04] MEDS ORDERED: ZYPREXA5 MG PO (13:31)
== END 2017-02-04 15:15 | DRG 884 ==
LOC: D.PSYCH 16:30
PROVIDERS: Family Medicine; ADMIT Psychiatry & Neurology Psychiatry
DX: F03.91 Unspecified dementia, unspecified severity, with behavioral disturbance (principal); F32.9 Major depressive disorder, single episode, unspecified; F60.81 Narcissistic personality disorder; E11.9 Type 2 diabetes mellitus without complications; I11.0 Hypertensive heart disease with heart failure; I50.9 Heart failure, unspecified; L40.50 Arthropathic psoriasis, unspecified; I25.10 Atherosclerotic heart disease of native coronary artery without angina pectoris; Z95.1 Presence of aortocoronary bypass graft; Z95.0 Presence of cardiac pacemaker; E78.5 Hyperlipidemia, unspecified; K21.9 Gastro-esophageal reflux disease without esophagitis; K59.00 Constipation, unspecified; N40.0 Benign prostatic hyperplasia without lower urinary tract symptoms; E03.9 Hypothyroidism, unspecified; J44.9 Chronic obstructive pulmonary disease, unspecified; M10.9 Gout, unspecified; Z91.81 History of falling; R31.0 Gross hematuria; S80.921A Unspecified superficial injury of right lower leg, initial encounter; X58.XXXA Exposure to other specified factors, initial encounter

== ENCOUNTER 2017-06-01 21:42 | Inpatient (IN) | payer MEDICARE, OTHER ==
[2017-06-01 22:43] LABS: BASOPHILS 0 % (0-2); EOSINOPHILS 0 % (0-7); HEMATOCRIT 36.3 % (42.0-54.0); IMMATURE GRANULOCYTES 0.7 % (0-5); MCH 31.6 pg (26.0-34.0); MCHC 33.1 g/dL (31.0-37.0); MCV 95.5 fL (80.0-100.0); MEAN PLATELET VOLUME 9.4 fL (7.4-10.4); MONOCYTES 1.5 % (2-11); NEUTROPHILS 92.8 % (40-80); RDW 16.1 % (11.5-14.5); WBC 6.2 10x3/uL (4.8-10.8)
[2017-06-01 22:51] LABS: PLATELET COUNT 180 10x3/uL (130-400)
[2017-06-01 23:08] LABS: ALBUMIN 2.3 g/dL (3.4-5.0); ALKALINE PHOSPHATASE 56 U/L (46-116); ALT (SGPT) 28 U/L (10-68); BILIRUBIN - TOTAL 0.48 mg/dL (0.2-1.3); CALC OSMOLALITY 298 mosm/kg (275-300); CALCIUM 9.1 mg/dL (8.5-10.1); CARBON DIOXIDE 26.5 mmol/L (21.0-32.0); CHLORIDE - SERUM 109 mmol/L (98-107); CREATININE - SERUM 1.8 mg/dL (0.6-1.3); POTASSIUM - SERUM 3.8 mmol/L (3.5-5.1); PROTEIN - SERUM 5.5 g/dL (6.4-8.2); SODIUM 143 mmol/L (136-145); UREA NITROGEN 44 mg/dL (7-18); eGFR NON AFRICAN AMERICAN 39 mL/min (90-120)
[2017-06-01 23:09] LABS: GLUCOSE 144 mg/dL (74-106)
[2017-06-01 23:34] LABS: CKMB 2.8 U/L (0.0-3.6); CREATINE KINASE 197 UL (21-232); MAGNESIUM - SERUM 1.8 mg/dL (1.8-2.4); PRO BNP 11560 pg/mL (0-450)
[2017-06-01 23:38] LABS: APPEARANCE CLOUDY (CLEAR); BILIRUBIN NEGATIVE (NEGATIVE); COLOR DK YELLOW (YELLOW); GLUCOSE NEGATIVE (NEGATIVE); KETONE NEGATIVE (NEGATIVE); LEUKOCYTE ESTERASE TRACE (NEGATIVE); NITRITE NEGATIVE (NEGATIVE); PROTEIN 2+ mg/dL (NEGATIVE); SPECIFIC GRAVITY 1.015 (1.005-1.020); UROBILINOGEN NORMAL (NORMAL)
[2017-06-01 23:39] LABS: BACTERIA MODERATE /hpf (NONE SEEN); EPITHELIAL CELLS 0-5 /hpf (0-5); HYALINE CAST 0-5 /lpf (NONE SEEN); RED CELLS - URINE 0-5 /hpf (0-5); WHITE CELLS - URINE 0-5 /hpf (0-5)
[2017-06-01 23:42] LABS: TROPONIN-I 0.068 ng/mL (0.000-0.060)
--- NOTE | 2017-06-02 02:45 | NUR ---
ARRIVED TO FLOOR VIA STRETCHER, ACCOMPANIED BY HOSPITAL STAFF. ORIENTED TO UNIT AND PLACED ON TELEMETRY. TEGADERM APPLIED TO 2 SKIN TEARS, RIGHT FOREARM AND LEFT SÁNCHEZ. HIGGINS TO GRAVITY, CLEAR YELLOW APPROXIMATELY 300CC. LEFT HAND SALINE LOCKED. PLACED ON TELEMETRY, 73 PACED. BOX ALARM PUT ON, CALL LIGHT IN REACH. WILL CONTINUE TO MONITOR.
[2017-06-02 04:00] VITALS: BP 100/69
[2017-06-02] MEDS ORDERED: CARVEDILOL TAB 3.1 PO (04:15)
[2017-06-02] MEDS ORDERED: PREDNISONE10 MG PO (04:15)
[2017-06-02 05:27] LABS: CKMB 9.2 U/L (0.0-3.6); CREATINE KINASE 1422 UL (21-232); TROPONIN-I 0.101 ng/mL (0.000-0.060)
--- NOTE | 2017-06-02 07:36 | NUR ---
PT SITTING UP IN BED SLEEPING NO S/S DISTRESS NOTED RR EVEN AND UNLABORED WILL CONT TO MONITOR
[2017-06-02 08:00] VITALS: BP 110/80
[2017-06-02 11:18] LABS: CKMB 8.4 U/L (0.0-3.6); CREATINE KINASE 1350 UL (21-232)
[2017-06-02 11:19] LABS: TROPONIN-I 0.101 ng/mL (0.000-0.060)
[2017-06-02 12:00] VITALS: BP 123/74
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
--- NOTE | 2017-06-02 13:06 | NUR ---
PT STILL YELLING OUT CUSSING AT STAFF. KAILYN JOYCE WANTED TO SEE IF HOME MEDS HELPED CALM PT DOWN FIRST BEFORE PRNS..GIVEN THEM. ALSO APPLIED NYSTATIN CREAM TO BILAT GROINS WHICH SEEMED TO HELP PT HAVE SOME COMFORT. PT IS REFUSING TO EAT ANYTHING AT ALL.
[2017-06-02 14:02] VITALS: Ht 177.8 cm
[2017-06-02 15:43] LABS: CKMB 7.7 U/L (0.0-3.6); CREATINE KINASE 1373 UL (21-232)
[2017-06-02 15:47] LABS: TROPONIN-I 0.109 ng/mL (0.000-0.060)
--- NOTE | 2017-06-02 15:49 | NUR ---
DRS AWARE OF PT ELEVELATED TROPONIN
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
--- NOTE | 2017-06-02 17:00 | NUR ---
PT YELLING AND SCREAMING. BEING VERY DISRUPTIVE TO OTHER PTS. Erik BARRAGAN APN NOTIFIED AND ORDER FOR ATIVAN 1 MG IV RECEIVED. ATIVAN GIVEN. PT REQUESTED WARM BLANKET. WILL CONTINUE TO MONITOR.
--- NOTE | 2017-06-02 17:07 | NUR ---
PT SCREAMING AND YELLING CUSSING OUT NURSING STAFF AGAIN. BECOMING MORE COMBATIVE. ELIZABETH BIOMETRICS TECHNICIAN CALLED AND SPOKE TO KAILYN JOYCE. DR AUSTIN ORDERED MEDICATIONS FOR PT AGGITATION. ELIZABETH GAVE MEDICATIONS. PT IS CALM AND RELAXED RR EVEN AND UNLABORED. WILL CONT TO MONITOR
--- NOTE | 2017-06-02 18:23 | NUR ---
PT LAYING FLAT IN BED SLEEPING RR EVEN AND UNLABORED NO S/S DISTRESS NOTED
[2017-06-02 19:00] VITALS: BP 147/69
--- NOTE | 2017-06-02 19:24 | NUR ---
PT IN BED COMPLETLEY EXPOSED TRYING TO CLIMB OOB. REPOSITIONED PT IN BED AND COVERED WITH BLANKET. FOUL BODY NOTED. PT IS VERY CONFUSED. WILL MONITOR CLOSELY
--- NOTE | 2017-06-02 22:46 | NUR ---
UPON ADMINISTRATION OF NIGHT MEDS PT WAS VERY LETHARGIC. HE RESPONDED ONLY TO PAINFUL STIMULI. HELD ALL MEDS.
[2017-06-03] VITALS: BP 162/76
--- NOTE | 2017-06-03 04:07 | NUR ---
LEGUILLON DEBEADER AT BEDSIDE TO OBTAIN VITALS, CALL LIGHT IN REACH. WILL CONTINUE WITH PLAN OF CARE.
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
[2017-06-03 08:00] VITALS: BP 156/96
[2017-06-03 08:05] LABS: LYMPHOCYTES 8.4 % (15-50); MCH 31.4 pg (26.0-34.0); MCHC 33.6 g/dL (31.0-37.0); MCV 93.6 fL (80.0-100.0); MEAN PLATELET VOLUME 9.2 fL (7.4-10.4); NEUTROPHILS 84.8 % (40-80); RDW 16.4 % (11.5-14.5)
[2017-06-03 08:30] LABS: ALBUMIN 2.9 g/dL (3.4-5.0); ANION GAP 11.5 mmol/L (8-16); BILIRUBIN - TOTAL 0.5 mg/dL (0.2-1.3); CALCIUM 10.2 mg/dL (8.5-10.1); CARBON DIOXIDE 29.3 mmol/L (21.0-32.0); CREATININE - SERUM 1.1 mg/dL (0.6-1.3); POTASSIUM - SERUM 3.8 mmol/L (3.5-5.1); PROTEIN - SERUM 6.3 g/dL (6.4-8.2)
[2017-06-03 08:31] LABS: HEMATOCRIT 44.1 % (42.0-54.0); HEMOGLOBIN 14.8 g/dL (13.5-17.5); PLATELET COUNT 239 10x3/uL (130-400); RBC 4.71 10x6/uL (4.20-6.10); WBC 12.6 10x3/uL (4.8-10.8)
--- NOTE | 2017-06-03 13:34 | CN ---
PATIENT NAME:MK ROMAN MEDICAL RECORD: [id number] : 40 LOCATION:D. D.2136 ADMIT DATE: 06/02/17 ACCOUNT: [id number] CONSULTING PHYSICIAN: KAMILLA CLAUDIO MD REFERRING PHYSICIAN: ROSALINDA AUSTIN MD DATE OF CONSULTATION: 06/02/2017 Cardiology Consultation. DIAGNOSES: 1. Coronary artery disease. 2. Status post coronary bypass graft surgery. 3. Cardiomyopathy. 4. Congestive heart failure, chronic systolic dysfunction. 5. Frequent falls. 6. Altered mental status. HISTORY OF PRESENT ILLNESS: This is a gentleman, who presents after multiple falls with some shortness of breath. No real chest pain. No overall chest discomfort. Bruises all over from his falls. He has altered mental status, but this does not appear to be a new problem. He denies any chest pain or chest discomfort other than the discomfort over his chest where he is black and blue from his falls. His troponin is mildly elevated. He does have a history of coronary artery disease and coronary bypass graft surgery. His BNP is mildly elevated; however, he is only minimally short of breath. His blood pressure was below 100 yesterday in the Emergency Room, it is now at 100 systolic. He has had his Coreg and lisinopril held. His creatinine is 1.8. PHYSICAL EXAMINATION: GENERAL APPEARANCE: Well-nourished, well-developed, appears stated age. Level of distress, comfortable. PSYCHIATRIC: Mental status, alert, normal affect. Orientation, oriented to time, place and person. EYES: Lids and conjunctiva, noninjected. No discharge, no pallor. ENT: Lips, teeth, gums, normal dentition. Oropharynx, no cyanosis, no pallor. NECK: Carotid arteries, bilateral normal upstroke, no bruits, no thrills. JUGULAR VEINS: No jugular venous pressure or distention. CERVICAL LYMPH NODES: Nontender, nonenlarged. THYROID: Not enlarged. Nontender. No nodules. LUNGS: Respiratory effort, unlabored. CHEST: Normal curvature. No thoracic deformity. No chest wall tenderness. Percussion, resonant. Auscultation, clear. No wheezes, no rales, no rhonchi. CARDIOVASCULAR: Precordial exam, nondisplaced. No heaves or pericardial thrills. Rate and rhythm, regular. Heart sounds, normal S1, normal S2. No S3, no gallop, no rub. Systolic murmur, not heard. Diastolic murmur, not heard. EXTREMITIES: No cyanosis, no edema. Peripheral pulses, full and equal in all extremities, except as noted. No bruits appreciated. ABDOMEN: Soft, nondistended. Normal aorta. No bruit. Nontender. No masses. Liver, nontender, no hepatomegaly. Spleen, nontender, no splenomegaly. MUSCULOSKELETAL: No joint tenderness. No joint swelling. No erythema. NEUROLOGICAL: Normal gait, normal strength, normal tone. SKIN: Warm and dry. OVERALL IMPRESSION: 1. Coronary artery disease. With his mental status, we will not proceed with CONSULT REPORT [id number] MK ROMAN coronary angiography, only treat medically. 2. Congestive heart failure. He has really minimally heart failure at this point. He is minimally short of breath. He is on p.o. Lasix, would continue this. 3. Hypotension. His Coreg and lisinopril have been held and would permanently discontinue the lisinopril secondary to hypotension and the renal insufficiency. Restart the Coreg only if his blood pressure tolerates it. The hypotension is most likely largely responsible for his falls and at this point, no other cardiac workup or treatment is necessary. TRANSINT:[id number] Voice Confirmation ID: [id number] DOCUMENT ID: [id number] KAMILLA CLAUDIO MD at 1334 CC: [id number] DICTATION DATE: 06/02/17 123 ASSOCIATE PROFESSOR OF ENGINEERING: 06/02/172019 ADM IN [facility] [address] [place] [address]
--- NOTE | 2017-06-03 14:25 | NUR ---
SPOKE WITH ROSARIO AT [facility] ([phone]) AND EXPLAINED THAT WE HAD ORDERS TO DISCHARGE PATIENT. SHE STATED THAT ALL THE NURSES WERE IN A MEETING AND REQUESTED THAT THE NURSE HERE CALL BACK AND GIVE REPORT IN ABOUT 30 MINUTES AND THEY COULD ARRANGE TRANSPORT OR GIVE NEED FOR ALTERNATIVE TRANSPORT AT THAT TIME.
--- NOTE | 2017-06-03 15:42 | NUR ---
L.HAND PIV D/C WITH CATHETER TIP FULLY INTACT. PTS BELONGINGS COLLECTED. AWAITING HERITAGE TO COME ASSOCIATE FINANCIAL REPRESENTATIVE PT. NO FURTHER NEEDS.
--- NOTE | 2017-06-07 09:51 | EC ---
PATIENT:MK ROMAN DATE OF SERVICE: 06/02/17 SEX: M MEDICAL RECORD: [id number] DATE OF : 40 LOCATION:D.M2 D.213 AGE OF PATIENT: 76 ADMISSION DATE: 06/02/17 REFERRING PHYSICIAN: INTERPRETING PHYSICIAN: KAMILLA TOWNSEND MD ECHOCARDIOGRAM REPORT ECHO CHARGES 4 ECHO COMPLETE CLINICAL DIAGNOSIS: CHF HX OF CAD/CABG ECHOCARDIOGRAPHIC MEASUREMENTS (adult normal given) AC root (d.<3.7cm) 3.9 cm LV Septum d (<1.2 cm> 1.2 cm Valve Excursion 1.2 cm LV Septum (systole) 1.5 cm Left Atria (s.<4.0cm> 3.8 cm LVPW d(<1.2cm) 1.2 cm RV (d.<2.3cm) 3.8 cm LVPW (sytole) 1.4 cm LV diastole(<5.6CM) 6.5 cm MV E-F(>70mm/sec) cm LV systole 5.0 cm LVOT Diameter 1.7 cm MV exc.(>10mm) 1.0 cm Est.ejection fraction (50-75%) % Pericardial Effusion N DOPPLER: LVIT cm/sec A 94.0 cm/sec E 75.0 cm/sec LA cm/sec RVSP 26 mmHg LVOT 82 cm/sec AOP1/2T m/s Asc. Ao 207 cm/sec RVOT 99 cm/sec RA cm/sec PA 95 cm/sec AV Gradient Peak 17.19mmHg AV Mean 9.08 mmHg AV Area 1.0 cm MV Gradient Peak 4.30 mmHg MV Mean 1.50 mmHg MV Area cm COMMENTS: Certified Nursing Assistant: Brock MARX Refractory Specialist: 1 Dr. Townsend TAPE# PACS DATE OF SERVICE: 06/02/2017 Echocardiogram FINDINGS: 1. Left ventricular chamber size is dilated. Left ventricular systolic function is markedly reduced. Overall ejection fraction 15% to 20%. 2. Left atrium is within normal limits at 3.8 cm. Right atrium and right ventricular chamber sizes are as well mildly dilated. 3. Valvular structures: Aortic valve demonstrates mild calcific aortic ECHOCARDIOGRAM REPORT [id number] MK ROMAN stenosis. Valve area calculates to 1.0 cm-squared. There is a gradient of 17 mm across the valve. The remaining valvular structures have normal structure and motion. 4. Doppler interrogation elsewise reveals [id number] aortic insufficiency, mild mitral regurgitation, mild tricuspid regurgitation, no other valvular insufficiency or stenosis and pulmonary systolic pressure is preserved at 26 mmHg. 5. No evidence of pericardial effusion or left ventricular thrombus. TRANSINT:[id number] Voice Confirmation ID: [id number] DOCUMENT ID: [id number] KAMILLA TOWNSEND MD at 0951 CC: [id number] DICTATION DATE: 06/03/17 1310 SNOWBOARDER: 06/03/172014 DIS IN 06/03/17 [facility] [address] [place] [address]
== END 2017-06-03 15:47 | DRG 314 ==
LOC: D.ER 21:42 → D.M2 06-02 01:10
PROVIDERS: Emergency Medicine; ADMIT Family Medicine
DX: I95.9 Hypotension, unspecified (principal); I50.43 Acute on chronic combined systolic (congestive) and diastolic (congestive) heart failure; J18.9 Pneumonia, unspecified organism; I42.9 Cardiomyopathy, unspecified; N17.9 Acute kidney failure, unspecified; F01.51 Vascular dementia, unspecified severity, with behavioral disturbance; E03.9 Hypothyroidism, unspecified; E11.9 Type 2 diabetes mellitus without complications; F41.8 Other specified anxiety disorders; Z95.0 Presence of cardiac pacemaker; E78.5 Hyperlipidemia, unspecified; G30.9 Alzheimer's disease, unspecified; F02.80 Dementia in other diseases classified elsewhere, unspecified severity, without behavioral disturbance, psychotic disturbance, mood disturbance, and anxiety; Z91.81 History of falling; J32.0 Chronic maxillary sinusitis; I69.919 Unspecified symptoms and signs involving cognitive functions following unspecified cerebrovascular disease; F60.81 Narcissistic personality disorder

== ENCOUNTER 2017-06-18 23:11 | Emergency (ER) | payer OTHER ==
[~2017-06-18 23:11] MED LIST changes: +CARVEDILOL TAB 3.1 PO
[2017-06-18 23:57] LABS: HEMATOCRIT 43.4 % (42.0-54.0); HEMOGLOBIN 14.7 g/dL (13.5-17.5); LYMPHOCYTES 13.8 % (15-50); MCH 31.7 pg (26.0-34.0); MCHC 33.9 g/dL (31.0-37.0); MCV 93.5 fL (80.0-100.0); MEAN PLATELET VOLUME 10.1 fL (7.4-10.4); PLATELET COUNT 143 10x3/uL (130-400); RBC 4.64 10x6/uL (4.20-6.10); RDW 16.4 % (11.5-14.5); WBC 7.2 10x3/uL (4.8-10.8)
[2017-06-19 00:08] LABS: ALBUMIN 2.5 g/dL (3.4-5.0); ALKALINE PHOSPHATASE 63 U/L (46-116); ALT (SGPT) 33 U/L (10-68); BILIRUBIN - TOTAL 0.56 mg/dL (0.2-1.3); CALC OSMOLALITY 287 mosm/kg (275-300); CALCIUM 9.5 mg/dL (8.5-10.1); CHLORIDE - SERUM 106 mmol/L (98-107); CREATININE - SERUM 1.1 mg/dL (0.6-1.3); GLUCOSE 106 mg/dL (74-106); POTASSIUM - SERUM 4.1 mmol/L (3.5-5.1); PROTEIN - SERUM 5.9 g/dL (6.4-8.2); SODIUM 141 mmol/L (136-145); UREA NITROGEN 31 mg/dL (7-18); eGFR NON AFRICAN AMERICAN 69 mL/min (90-120)
[2017-06-19 00:22] LABS: CKMB 2.5 U/L (0.0-3.6); CREATINE KINASE 49 UL (21-232); VALPROIC ACID (DEPAKOTE) 73.2 ug/mL (50.0-100.0)
[2017-06-19 00:50] LABS: TROPONIN-I 0.083 ng/mL (0.000-0.060)
[2017-06-19 01:02] LABS: APPEARANCE CLEAR (CLEAR); BILIRUBIN NEGATIVE (NEGATIVE); COLOR YELLOW (YELLOW); GLUCOSE NEGATIVE (NEGATIVE); KETONE NEGATIVE (NEGATIVE); LEUKOCYTE ESTERASE NEGATIVE (NEGATIVE); NITRITE NEGATIVE (NEGATIVE); PROTEIN NEGATIVE (NEGATIVE); SPECIFIC GRAVITY 1.015 (1.005-1.020); UROBILINOGEN NORMAL (NORMAL)
== END 2017-06-19 03:14 | disposition short-term general hospital (02) ==
LOC: D.ER 23:11
PROVIDERS: Family Medicine
DX: I50.9 Heart failure, unspecified (principal); R53.1 Weakness

== ENCOUNTER 2018-03-06 20:01 | Emergency (ER) | payer MEDICARE | END 2018-03-06 23:06 | disposition home or self-care (01) | LOC: D.ER 20:01 | DX: R33.9 Retention of urine, unspecified (principal); I50.9 Heart failure, unspecified; F03.90 Unspecified dementia, unspecified severity, without behavioral disturbance, psychotic disturbance, mood disturbance, and anxiety; F17.200 Nicotine dependence, unspecified, uncomplicated ==

== ENCOUNTER 2018-09-29 21:10 | Emergency (ER) | payer MEDICARE ==
[~2018-09-29] VITALS: Ht 177.8 cm; Wt 104.5 kg
[2018-09-29 21:20] VITALS: Ht 177.8 cm; Wt 104.5 kg
[2018-09-29] MEDS ORDERED: COREG6.25 MG PO (21:23)
[2018-09-29] MEDS ORDERED: ZYLOPRIM100 MG PO (21:23)
[2018-09-29] MEDS ORDERED: GABAPENTIN100 MG PO (21:23)
[2018-09-29] MEDS ORDERED: LISINOPRIL10 MG PO (21:24)
[2018-09-29] MEDS ORDERED: OMEPRAZOLE20 M1 PO (21:24)
[2018-09-29] MEDS ORDERED: FERROUS SULFAT325 MG PO (21:25)
[2018-09-29] MEDS ORDERED: ALOPHEN PILLS5 MG PO (21:27)
[2018-09-29] MEDS ORDERED: SENNA LAXATIVE8.6 MG PO (21:27)
[2018-09-29] MEDS ORDERED: MELATONIN 3 MG1 TAB PO (21:27)
[2018-09-29] MEDS ORDERED: ZOLOFT100 MG PO (21:27)
[2018-09-29] MEDS ORDERED: LEVOXYL50 MCG PO (21:27)
[2018-09-29 23:58] VITALS: BP 114/52
== END 2018-09-29 23:59 | disposition home or self-care (01) ==
LOC: D.ER 21:10
DX: M53.3 Sacrococcygeal disorders, not elsewhere classified (principal); Z86.73 Personal history of transient ischemic attack (TIA), and cerebral infarction without residual deficits; E11.9 Type 2 diabetes mellitus without complications; E03.9 Hypothyroidism, unspecified; I11.0 Hypertensive heart disease with heart failure; I50.42 Chronic combined systolic (congestive) and diastolic (congestive) heart failure; Z95.0 Presence of cardiac pacemaker; I73.9 Peripheral vascular disease, unspecified; Z95.1 Presence of aortocoronary bypass graft; F03.90 Unspecified dementia, unspecified severity, without behavioral disturbance, psychotic disturbance, mood disturbance, and anxiety